=== PATIENT | male | born 2000 | race Hispanic/Latino ===

== ENCOUNTER 2022-02-06 19:59 | Emergency (ER) | payer SELFPAY ==
[2022-02-06] MEDS ORDERED: predniSONE 20 MG TAB ONE (20:44)
[2022-02-06] MEDS ORDERED: diphenhydrAMINE 50 MG CAP ONE (20:44)
[2022-02-06] MEDS ORDERED: Famotidine 20 MG TAB ONE (20:44)
== END 2022-02-06 20:57 | disposition home or self-care (01) ==
LOC: ERS 19:59
DX: L25.9 Unspecified contact dermatitis, unspecified cause (principal); F17.210 Nicotine dependence, cigarettes, uncomplicated
CPT/HCPCS: 99282; J7512